=== PATIENT | male | born 1970 | race Caucasian/White ===

== ENCOUNTER 2016-05-19 12:51 | Emergency (ER) | payer BC ==
[2016-05-19] MEDS ORDERED: NS 0.9% 1000 ML* 1,000 ML IV ONE (14:08)
[2016-05-19] MEDS ORDERED: Ketorolac INJ* 30 MG/ML 1 ML VIAL IV PUSH ONE (14:08)
[2016-05-19 14:45] LABS: Hematocrit 43 % (42-52); Hemoglobin 14.1 g/dl (14.0-18.0); Mean Corpuscular HGB Conc 33 g/dl (31-36); Mean Corpuscular Hemoglobin 27 pg (27-31); Mean Corpuscular Volume 83 fL (80-94); Mean Platelet Volume 8 um3 (7.4-10.4); Red Blood Count 5.26 10^6/ul (4.0-5.4); Red Cell Distribution Width 14 % (10.5-15); White Blood Count 7.9 10^3/ul (3.5-10.8)
--- NOTE | 2016-05-19 14:54 | RAD ---
INDICATION: Left flank pain COMPARISON: CT chest and abdomen July 29, 2009 TECHNIQUE: Noncontrast axial source images were acquired from the level hemidiaphragms to the symphysis pubis as part of CT imaging for renal stone. Lung bases: The lung bases are clear. Liver: The liver is normal in size. Noncontrast imaging shows no evidence of a hepatic mass or ductal dilatation. Gallbladder: There are no calcified gallstones. There is no evidence of wall thickening or pericholecystic fluid.. Spleen: The spleen is normal in size. The noncontrast CT appearance is normal. Pancreas: Noncontrast imaging shows no pancreatic mass or ductal dilitation. Adrenal glands: No masses are identified. Kidneys/Bladder: There is no evidence of nephrolithiasis or CT evidence of hydronephrosis. Noncontrast imaging shows no evidence of a renal mass. The bladder is unremarkable.. Adenopathy: There is no evidence of intraperitoneal or retroperitoneal adenopathy. Evaluation is limited without oral contrast. Fluid collections: There are no free or localized fluid collections. Vessels: The aorta and iliac vessels are normal in caliber. There are no significant atherosclerotic changes. The IVC appears normal Pelvic organs: The prostate and seminal vesicles appear normal GI tract: Evaluation of the bowel is limited without oral contrast. The stomach, small bowel, and lower GI tract appear grossly normal. There are no obstructive findings. The appendix is visualized and appears normal. Soft tissues: No soft tissue abnormalities of the extraperitoneal abdomen or pelvis are identified. Osseous structures: There are no acute osseous findings. There is chronic L5 spondylolysis without associated anterolisthesis IMPRESSION: NO CT EVIDENCE OF UROLITHIASIS. CHRONIC L5 SPONDYLOLYSIS.
[2016-05-19 15:03] LABS: Albumin 4.2 g/dL (3.2-5.2); BUN/Creatinine Ratio 12.5 (8-20); C Reactive Protein 1.44 mg/L (< 5.00); Calcium 9.2 mg/dL (8.6-10.3); EGFR African American 98.9 (>60); EGFR Non-African American 76.9 (>60); Globulin 2.9 g/dL (2-4); Potassium 3.4 mmol/L (3.5-5.0); Total Bilirubin 0.6 mg/dL (0.2-1.0); Total Protein 7.1 g/dL (6.4-8.9)
[2016-05-19] MEDS ORDERED: Potassium Chlor TAB* 20 MEQ TAB.ER PO ONE (15:29)
[2016-05-19 15:59] LABS: Urine Bilirubin Negative (Negative); Urine Glucose Negative (Negative); Urine Nitrite Negative (Negative)
[2016-05-19 18:14] VITALS: BP 117/89
--- NOTE | 2016-05-20 08:17 | ED ---
Byron Moulton Matthew, scribed for Clinton Lopez MD on 05/19/16 at 1432 . Back Pain - HPI Summary HPI Summary: A 46 y/o male presents to the ED with left lower back pain since 05/13/16. The pain is rated 6-7/10 in severity. Associated symptoms include pressure of the left lower quadrant, which developed a few days after the back pain. He denies nausea, vomiting, diarrhea, constipation, weakness of the LE, and urinary/bowel incontinence. The lower back pain alleviates with neck flexion. The patient has never had this pain before, but has chronic back pain. He has been taking 100- 150mg of oxycodone daily for pain. He is seen at the pain clinic. No PMHx. SHx appendicitis, abscess removal. Smokes E-cigarettes. FHx of HTN and CAD. His father had an GA at 56. - History of Current Complaint Chief Complaint: EDBackInjuryPain Stated Complaint: LEFT FLANK PAIN Time Seen by Provider: 05/19/16 13:57 Hx Obtained From: Patient Onset/Duration: Lasting Days, Still Present Onset/Duration: Started Days Ago, Atraumatic, Still Present Timing: Constant Back Pain Location: Is Discrete @ - left lower back Severity Initially: Moderate Severity Currently: Moderate Pain Intensity: 6 Pain Scale Used: 0-10 Numeric Aggravating Symptom(s): Nothing Alleviating Symptom(s): Position - Flexion of the neck Associated Signs And Symptoms: Positive: Abdominal Pain. Negative: Bladder Incontinence, Bowel Incontinence - Allergies/Home Medications Allergies/Adverse Reactions: Allergies Allergy/AdvReac Type Severity Reaction Status Date / Time Shellfish Allergy Allergy Intermediate Rash Verified 05/16/16 08:57 Penicillins Allergy Unknown Unknown Verified 05/16/16 08:57 Reaction Details PMH/Surg Hx/FS Hx/Imm Hx Endocrine/Hematology History: Denies: Hx Diabetes, Hx Thyroid Disease Cardiovascular History: Reports: Hx Hypercholesterolemia Denies: Hx Hypertension, Hx Pacemaker/ICD Respiratory History: Denies: Hx Asthma, Hx Chronic Obstructive Pulmonary Disease (COPD) GI History: Denies: Hx Ulcer Musculoskeletal History: Reports: Other Musculoskeletal History - chronic pain Sensory History: Denies: Hx Hearing Aid Psychiatric History: Reports: Hx Anxiety, Hx Depression, Hx Panic Disorder - Surgical History Surgery Procedure, Year, and Place: appendectomy. cyst removal - abd. hemorrhoidectomy - Immunization History Date of Tetanus Vaccine: 4 years ago. Infectious Disease History: No Infectious Disease History: Denies: Hx Hepatitis, Hx Human Immunodeficiency Virus (HIV), Traveled Outside the [place] in Last 30 Days - Family History Known Family History: Positive: Cardiac Disease - Father had an GA in his 50s, Hypertension - Social History Alcohol Use: None Substance Use Type: Reports: None Substance Use Comment - Amount & Last Used: oxycodone Smoking Status (MU): Light Every Day Tobacco Smoker Type: eCigarettes Amount Used/How Often: uses e cigarette Length of Time of Smoking/Using Tobacco: 26 yrs Have You Smoked in the Last Year: Yes Review of Systems Constitutional: Negative Eyes: Negative ENT: Negative Cardiovascular: Negative Respiratory: Negative Positive: Abdominal Pain - LLQ. Negative: Vomiting, Diarrhea, Nausea Genitourinary: Negative Negative: incontinence Positive: Myalgia - left lower back pain Skin: Negative Neurological: Negative Negative: Weakness Psychological: Normal All Other Systems Reviewed And Are Negative: Yes Physical Exam - Summary Physical Exam Summary: VITAL SIGNS: Reviewed. GENERAL: Patient is a well developed and nourished male who is lying comfortable in the stretcher. Patient is not in any acute respiratory distress. HEAD AND FACE: Normocephalic and atraumatic. EYES: PERRLA, EOMI x 2, No injected conjunctiva. EARS: Hearing grossly intact. Ear canals and tympanic membranes are WNL. MOUTH: Oropharynx within normal limits. NECK: Supple, trachea is midline, no adenopathy, no JVD. CHEST: Symmetric, no tenderness at palpation LUNGS: Clear to auscultation bilaterally. No wheezing or crackles. CVS: RRR,, S1 and S2 present, no murmurs or gallops appreciated. ABDOMEN: Soft, non-tender. No signs of distention. Positive bowel sounds. No rebound no guarding, and no masses palpated. No abdominal bruit or pulsations. Positive left CVAT's EXTREMITIES: FROM in all major joints, no edema, no cyanosis or clubbing. NEURO: Alert and oriented x 3. No acute neurological deficits. Speech is normal. SKIN: Dry and warm Triage Information Reviewed: Yes Vital Signs On Initial Exam: Initial Vitals Temp Pulse Resp BP Pulse Ox 97.9 F 76 18 160/106 100 05/19/16 13:13 05/19/16 13:13 05/19/16 13:13 05/19/16 13:13 05/19/16 13:13 Vital Signs Reviewed: Yes Diagnostics - Vital Signs Vital Signs Temp Pulse Resp BP Pulse Ox 05/19/16 13:18 97.9 F 72 18 160/106 100 05/19/16 13:13 97.9 F 76 18 160/106 100 - Laboratory Lab Results: Lab Results 05/19/16 05/19/16 Range/Units 14:30 14:30 WBC 7.9 (3.5-10.8) 10^3/ul RBC 5.26 (4.0-5.4) 10^6/ul Hgb 14.1 (14.0-18.0) g/dl Hct 43 (42-52) % MCV 83 (80-94) fL MCH 27 (27-31) pg MCHC 33 (31-36) g/dl RDW 14 (10.5-15) % Plt Count 242 (150-450) 10^3/ul MPV 8 (7.4-10.4) um3 Neut % (Auto) 55.8 (38-83) % Lymph % (Auto) 36.4 (25-47) % [place] % (Auto) 6.8 (1-9) % Eos % (Auto) 0.6 (0-6) % Baso % (Auto) 0.4 (0-2) % Absolute Neuts (auto) 4.4 (1.5-7.7) 10^3/ul Absolute Lymphs (auto) 2.9 (1.0-4.8) 10^3/ul Absolute Monos (auto) 0.5 (0-0.8) 10^3/ul Absolute Eos (auto) 0 (0-0.6) 10^3/ul Absolute Basos (auto) 0 (0-0.2) 10^3/ul Absolute Nucleated RBC 0 10^3/ul Nucleated RBC % 0.1 Sodium 136 (133-145) mmol/L Potassium 3.4 L (3.5-5.0) mmol/L Chloride 101 (101-111) mmol/L Carbon Dioxide 30 (22-32) mmol/L Anion Gap 5 (2-11) mmol/L BUN 13 (6-24) mg/dL Creatinine 1.04 (0.67-1.17) mg/dL Est GFR ( Amer) 98.9 (>60) Est GFR (Non-Af Amer) 76.9 (>60) BUN/Creatinine Ratio 12.5 (8-20) Glucose 89 (70-100) mg/dL Calcium 9.2 (8.6-10.3) mg/dL Total Bilirubin 0.60 (0.2-1.0) mg/dL AST 20 (13-39) U/L ALT 39 (7-52) U/L Alkaline Phosphatase 69 (34-104) U/L C-Reactive Protein 1.44 (< 5.00) mg/L Total Protein 7.1 (6.4-8.9) g/dL Albumin 4.2 (3.2-5.2) g/dL Globulin 2.9 (2-4) g/dL Albumin/Globulin Ratio 1.4 (1-3) Amylase 35 (29-103) U/L Lipase 20 (11.0-82.0) U/L Result Diagrams: 05/19/16 14:30 05/19/16 14:30 Lab Statement: Any lab studies that have been ordered have been reviewed, and results considered in the medical decision making process. - CT A/P CT CT Interpretation: No Acute Changes - IMPRESSION: NO CT EVIDENCE OF UROLITHIASIS. CHRONIC L5 SPONDYLOLYSIS. CT Interpretation Completed By: Radiologist Back Pain Course/Dx - Course Assessment/Plan: A 46 y/o male presents to the ED with left lower back pain since 05/13/16. The pain is rated 6-7/10 in severity. Associated symptoms include pressure of the left lower quadrant, which developed a few days after the back pain. He denies nausea, vomiting, diarrhea, constipation, weakness of the LE, and urinary/bowel incontinence. The lower back pain alleviates with neck flexion. The patient has never had this pain before, but has chronic back pain. He has been taking 100-150mg of oxycodone daily for pain. He is seen at the pain clinic. No PMHx. SHx appendicitis, abscess removal. Smokes E-cigarettes. FHx of HTN and CAD. His father had an GA at 56. Test results WNL except potassium of 3.4. A/P CT shows no evidence of urolithiasis. Chronic L5 spondylolysis. In the ED course, the patient was given IV fluids and Toradol for the pain and hes feeling better. I r/o pancreatitis since amylase and lipase are normal. No diverticulitis according to CT. I believe the patient has more musculoskeletal pain therefore he will be discharged home with ibuprofen and Robaxin. He is A&Ox3 and hemodynamically stable. I discussed all the findings and test results with the patient. Patient was instructed to return to the emergency room immediately if any of the symptoms return or worsens. Plan of care was discussed with the patient and understands and agrees. All questions were answered at patient satisfaction. There were no further complaints or concerns. Lung exam before discharge: CTA B/L. Good air exchange. No wheezing or crackles heard. CVS: S1 and S2 present. No murmurs appreciated. Patient is alert and oriented x 3. Patient is hemodynamically stable. Patient will be discharged home with follow up PCP in the next 2-3 days - Diagnoses Differential Diagnosis/HQI/PQRI: Positive: Herniated Disc, Renal Colic, Strain, Sprain Provider Diagnoses: Back pain, Flank pain Discharge - Discharge Plan Condition: Stable Disposition: HOME Prescriptions: Ibuprofen TAB* [Motrin TAB* 800 MG] 800 mg PO Q6H PRN #30 tab PRN Reason: Pain Methocarbamol TAB* [Robaxin TAB*] 750 mg PO TID #12 tab Patient Education Materials: Ibuprofen (By mouth), Methocarbamol (By mouth), Back Pain (ED) Referrals: [facility] [place] [facility] [[place]] - 3 Days No Primary Care Phys,NOPCP [Primary Care Provider] - Additional Instructions: Please follow-up with your primary care physician in 3 days. The documentation as recorded by the Byron aguilar Matthew accurately reflects the service I personally performed and the decisions made by me, Clinton Lopez MD.
== END 2016-05-19 16:06 | disposition home or self-care (01) ==
LOC: ED 12:51
DX: M54.5 Low back pain (principal); R10.32 Left lower quadrant pain; F17.210 Nicotine dependence, cigarettes, uncomplicated
CPT/HCPCS: 36415; 74176; 80053; 81003; 82150; 83690; 85025; 86140; 99283; J1885